=== PATIENT | female | born 1960 | race Caucasian/White ===

== ENCOUNTER 2017-03-11 09:40 | Outpatient (CLI) | payer OTHER ==
--- NOTE | 2017-03-12 08:49 | XRAY Report ---
DATE OF SERVICE: 03/11/2017 THREE VIEW RIGHT KNEE: 03/11/2017 CLINICAL INDICATION: Pain. COMPARISON: 05/19/2011 AP, lateral, sunrise views of the right knee demonstrate moderate osteoarthritis , increased from previous. There is no evidence of acute fracture or dislocation. No effusion is present. IMPRESSION: Progression of right knee osteoarthritis, now moderate. TD: 03/11/2017 18:22 [facility]
== END 2017-03-11 09:41 | disposition home or self-care (01) ==
LOC: DI.S 09:40
PROVIDERS: ATTEND Nurse Practitioner Family
DX: M17.11 Unilateral primary osteoarthritis, right knee (principal)

== ENCOUNTER 2017-03-31 11:58 | Outpatient (CLI) | payer OTHER ==
--- NOTE | 2017-03-31 17:03 | MRI Report ---
EXAM: RIGHT KNEE MRI WITHOUT CONTRAST EXAM DATE: 03/31/2017 12:52 PM. CLINICAL HISTORY: Right knee pain for 4 months. COMPARISON: Right knee radiography from 03/11/2017. TECHNIQUE: Multiplanar, multisequence T1-weighted and fluid-sensitive sequences of the knee without c ontrast. Other: None. FINDINGS: Bones and articular cartilage: Large osteophytes at the femoral condyles, tibial plateau, and patella . A focal 6 x 4 mm full-thickness articular cartilage defect at the anterior aspect of the medial fem oral condyle. Grade 2 chondromalacia at the remaining medial femoral condyle and medial tibial platea u. Grade 2 chondromalacia of the central and posterior aspects of the lateral tibial plateau. Subchon dral marrow edema at the medial femoral condyle and medial tibial plateau. Grade 4 chondromalacia, sl ight cortical irregularity, tiny subcortical cysts at the lateral patellar facet and lateral trochlea r facet. Grade 3-4 chondromalacia of the medial ridge of the patella and grade 2-3 chondromalacia of the medial patellar facet. Medial Meniscus: Focal radial oblique tear at the lateral aspect of the posterior horn. Lateral Meniscus: The lateral meniscus is intact. Cruciate Ligaments: The anterior and posterior cruciate ligaments are intact. Collateral Ligaments: The medial collateral and lateral collateral ligamentous structures are intact. Tendons: The quadriceps, patellar, semimembranosus, and popliteus tendons are unremarkable. Musculature: No edema or fatty atrophy. Other: No effusion. Small popliteal cyst. Small amount of fluid at the semimembranosus-tibial collate ral ligament bursa. There is an approximately 5 x 6 x 4 mm ossified loose body within the suprapatell ar recess of the joint. There is a small 6 x 3 x 4 mm calcified focus within the lateral aspect of th e patellofemoral joint or within the sub-synovial fat. The medial and lateral retinacula are intact. The subcutaneous tissues and fat pads are unremarkable. IMPRESSION: 1. Tricompartmental osteoarthritis, which is most significant at the patellofemoral compartment. 2. Focal radial oblique tear at the lateral aspect of the posterior horn medial meniscus. 3. Small popliteal cyst. Mild semimembranosus-tibial collateral ligament bursitis. 4. Ossified loose body within the suprapatellar recess of the joint capsule. There is a 6 x 3 x 4 mm calcified focus within the lateral aspect of the patellofemoral joint or within the sub-synovial fat. [facility] MUSCULOSKELETAL RADIOLOGY SECTION Referring Provider Line: [phone] SITE ID: [id number]
== END 2017-03-31 11:59 | disposition home or self-care (01) ==
LOC: DI 11:58
PROVIDERS: ATTEND Internal Medicine
DX: M17.11 Unilateral primary osteoarthritis, right knee (principal); S83.241A Other tear of medial meniscus, current injury, right knee, initial encounter; M71.21 Synovial cyst of popliteal space [Baker], right knee; M70.51 Other bursitis of knee, right knee; M23.41 Loose body in knee, right knee

== ENCOUNTER 2018-02-03 10:26 | Outpatient (CLI) | payer OTHER ==
--- NOTE | 2018-02-04 12:40 | Mammography Report ---
Reason: SCREENING MAMMO Procedure Date: 02/03/2018 Accession Number: [id number] / [id number] Procedure: MGN - Screening Mammo Dig Bilat CPT Code: FULL RESULT: EXAM: Screening Mammo Dig Bilat DATE: 02/03/2018 10:46 AM CLINICAL HISTORY: 57-year-old female for screening. TECHNIQUE: Bilateral CC and MLO views were obtained. COMPARISON: 06/11/2014, 01/24/2013, 05/01/2011, 04/25/2010. FINDINGS: The breasts demonstrate scattered fibroglandular densities bilaterally. No suspicious masses, clustered microcalcifications, or regions of architectural distortion are identified. IMPRESSION: Negative examination RECOMMENDATION: Routine annual screening unless otherwise clinically indicated. BIRADS CATEGORY 1: Negative STANDARD QUALIFYING STATEMENTS: 1. This examination was reviewed with the aid of Computer-Aided Detection (CAD). 2. A negative or benign imaging report should not delay biopsy if clinically suspicious findings are present. Consider surgical consultation if warranted. More than 5% of cancers are not identified by imaging. 3. Dense breasts may obscure an underlying neoplasm. 4. This examination was reviewed without the aid of 3D breast imaging (tomosynthesis).
== END 2018-02-03 10:27 | disposition home or self-care (01) ==
LOC: DI.N 10:26
DX: Z12.31 Encounter for screening mammogram for malignant neoplasm of breast (principal)
CPT/HCPCS: 77067

== ENCOUNTER 2018-02-04 08:15 | Outpatient (CLI) | payer OTHER | END 2018-02-04 08:16 | disposition home or self-care (01) | LOC: RT 08:15 | PROVIDERS: ATTEND Plastic Surgery | DX: Z01.810 Encounter for preprocedural cardiovascular examination (principal) | CPT/HCPCS: 93005 ==

== ENCOUNTER 2022-12-23 14:00 | Outpatient (CLI) | payer OTHER ==
--- NOTE | 2022-12-24 11:18 | Mammography Report ---
BILATERAL DIGITAL SCREENING MAMMOGRAM 3D/2D: 12/23/2022 CLINICAL: Routine screening. Comparison is made to exams dated: 02/03/2018 mammogram, 06/11/2014 mammogram, and 01/24/2013 mammogra m - [facility]. Both breasts are almost entirely fatty (category a/<25% glandular tissue). No significant masses, calcifications, or other findings are seen in either breast. There has been no significant interval change. IMPRESSION: NEGATIVE There is no mammographic evidence of malignancy. A 1 year screening mammogram is recommended. Based on the Tyrer Cuzick model (a risk assessment model) the patients lifetime risk is 4.6% and her 10 year risk is 2.0%. According to the ACR, ACS, and NCCN guidelines, an annual breast MRI exam keyanna g with mammogram is recommended if the patients lifetime risk is 20% or greater. This exam was interpreted at Station ID: [id number]. NOTE: For mammograms, a report in lay terms will be sent to the patient. Approximately 15% of breast malignancies will not be visualized mammographically. In the management of a palpable breast mass, a negative mammogram must not discourage biopsy of a clinically suspicious lesion. Electronically Signed By: Patrick davey/dre:12/23/2022 17:38:38 letter sent: No_Letter ACR BI-RADS Category 1: Negative 3341F PARENCHYMAL PATTERN: (F) - The breast(s) demonstrate(s) diffuse fatty replacement. BI-RADS CATEGORY: (1) - 1 Mammogram [id number] 1 year screening LATERALITY: (B)
== END 2022-12-23 14:01 | disposition home or self-care (01) ==
LOC: DI.S 14:00
PROVIDERS: ATTEND Physician Assistant
DX: Z12.31 Encounter for screening mammogram for malignant neoplasm of breast (principal)